=== PATIENT | female | born 1990 | race Caucasian/White ===

== ENCOUNTER 2022-05-11 10:48 | Emergency (ER) | payer MEDICAID ==
[~2022-05-11] VITALS: Ht 157.5 cm; Wt 84.0 kg
[2022-05-11] MEDS ORDERED: IBUPROFEN 600MG TABLET PO STA (11:44)
[2022-05-11 13:05] VITALS: BP 123/80
[2022-05-11] MEDS ORDERED: NAPR-681 PO (13:27)
[2022-05-11] MEDS ORDERED: CLAR10 PO (13:27)
[2022-05-11] MEDS ORDERED: P20 PO (13:27)
[2022-05-11] MEDS ORDERED: FLUT9.9S BOTHNSTRLS (13:27)
[2022-05-11 15:30] LABS: CLARITY URINE CLOUDY (CLEAR); COLOR URINE YELLOW (YELLOW); KETONES URINE NEGATIVE (NEGATIVE); LEUKOCYTE ESTERASE URINE NEGATIVE (NEGATIVE); NITRITE URINE NEGATIVE (NEGATIVE); OCCULT BLOOD URINE NEGATIVE (NEGATIVE); PH URINE 7.5 (4.5-8.0); PROTEIN URINE NEGATIVE (NEGATIVE); SPECIFIC GRAVITY URINE 1.022 (1.005-1.030); UROBILINOGEN URINE 0.2 E.U./dL (0.2-1.0)
== END 2022-05-11 13:50 | disposition home or self-care (01) ==
LOC: ER 10:48
DX: H69.81 Other specified disorders of Eustachian tube, right ear (principal); R42 Dizziness and giddiness; Z20.822 Contact with and (suspected) exposure to COVID-19
CPT/HCPCS: 81003; 81025; 87426; 99283